=== PATIENT | female | born 1955 | race Caucasian/White ===

== ENCOUNTER 2019-11-24 20:00 | Outpatient (CLI) | payer MEDICARE, SELFPAY | END 2019-11-24 20:01 | disposition home or self-care (01) | LOC: SLEEP 11-25 10:19 | PROVIDERS: Family Provider Family Medicine; PCP Family Medicine; Visit Provider Family Medicine | DX: G47.10 Hypersomnia, unspecified (principal) | CPT/HCPCS: 95810 ==

== ENCOUNTER 2020-07-12 10:15 | Outpatient (CLI) | payer MEDICARE, SELFPAY ==
--- NOTE | 2020-07-12 10:20 | CT_ITS ---
WS: [id number] CT CHEST WITHOUT INTRAVENOUS CONTRAST HISTORY: SHORTNESS OF BREATH/TACHYCARDIA/COUGH/COVID 19 TECHNIQUE: Contiguous 5 mm axial imaging performed on the thorax. Coronal and sagittal reformats are submitted. All CT scans at [facility] use at least one of these dose optimization techniq ues: automated exposure control; mA and/or kV adjustment per patient size (includes targeted exams wh ere dose is matched to clinical indication); or iterative reconstruction. CONTRAST: None DLP: 461.78 mGy.cm COMPARISON: Chest radiograph 06/17/2019 Lungs and central airway: Marked hyperinflation of the lungs. There is continued groundglass and mild heterogeneity in a mosaic distribution predominantly in the lower lung moeller and the periphery. Les ign granuloma RIGHT upper lobe. Scarring at the RIGHT apex with calcification. Soft tissue nodule wit h calcification along the superior RIGHT major fissure. The soft tissue component extends over a zeb gth of 1.5 cm. Pleura: Mild pleural thickening bilaterally. Heart and pericardium: Mild pericardial enlargement. No effusion. Mediastinum and uzma: Calcified RIGHT paratracheal, subcarinal and hilar lymph nodes. Vessels: Normal size aortic and pulmonary artery. No coronary artery calcifications. Chest wall and lower neck: No soft tissue masses. Upper abdomen: Prior cholecystectomy. Mild hepatic steatosis. Splenic granulomata. Osseous structures: No destructive process. CT/CT chest wo con [id number] IMPRESSION: 1. Groundglass attenuation in the lower lung moeller which can be seen with vir al pneumonitis or air trapping from emphysema and chronic lung disease. 2. Lobulated soft tissue nodule with calcification along the superior RIGHT ma jennifer fissure. Soft tissue component measures 1.5 cm in length. Recommend continu ed close follow-up for stability. Recommend follow-up chest CT in 3-6 months. 3. Prior granulomatous disease. 4. Chronic emphysema. 5. Prior cholecystectomy.
== END 2020-07-12 10:16 | disposition home or self-care (01) ==
LOC: CT 10:18
PROVIDERS: PCP Family Medicine; Visit Provider Family Medicine
DX: U07.1 COVID-19 (principal); R06.02 Shortness of breath; R00.0 Tachycardia, unspecified; R05 Cough; J43.9 Emphysema, unspecified; D71 Functional disorders of polymorphonuclear neutrophils; R91.1 Solitary pulmonary nodule
CPT/HCPCS: 71250

== ENCOUNTER 2020-07-26 10:38 | Outpatient (CLI) | payer MEDICARE, SELFPAY ==
--- NOTE | 2020-07-26 10:42 | USCV_ITS ---
Princess Saunders Age: 65 Gender: F : 1955 Exam Date: 07/26/2020 11:04 Ordering Phys: Muna Lawrence MD Technologist: Jared Watkins Exam Location: [facility] [place] Indication: CHEST PAIN BP: 120 / 70 HR: 101 Rhythm: Sinus Technical Quality: Fair MEASUREMENTS (Male / Female) Normal Values 2D ECHO LV Diastolic Diameter PLAX 4.0 cm 4.2 - 5.9 / 3.9 - 5.3 cm LV Systolic Diameter PLAX 2.4 cm IVS Diastolic Thickness 1.1 cm 0.6 - 1.0 / 0.6 - 0.9 cm IVS Systolic Thickness 1.7 cm LVPW Diastolic Thickness 1.0 cm 0.6 - 1.0 / 0.6 - 0.9 cm LVPW Systolic Thickness 1.3 cm LVOT Diameter 2.0 cm LV Ejection Fraction 2D Teich 72.1 % LV Ejection Fraction MOD 2C 58.4 % LV Ejection Fraction 2C AL 58.8 % LA Diameter 3.4 cm LA Width 2.9 cm LA Height 4.0 cm RA Width 3.1 cm RA Height 3.7 cm Aorta at Sinotubular Diameter 1.0 cm M-MODE LV Diastolic Diameter MM 4.4 cm 4.2 - 5.9 / 3.9 - 5.3 cm LV Systolic Diameter MM 2.6 cm LV Ejection Fraction MM Teich 71.4 % IVS Diastolic Thickness MM 1.0 cm 0.6 - 1.0 / 0.6 - 0.9 cm IVS Systolic Thickness MM 1.4 cm LVPW Diastolic Thickness MM 0.9 cm 0.6 - 1.0 / 0.6 - 0.9 cm LVPW Systolic Thickness MM 1.2 cm RV Diastolic Diameter MM 1.2 cm Aortic Annulus Diameter 3.6 cm LA Ao Ratio MM 1.0 MV E Point Septal Separation 0.9 cm DOPPLER AV Peak Velocity 102.0 cm/s LVOT Peak Velocity 78.0 cm/s AV Area Cont Eq vti 2.1 cm squared AV Area Cont Eq pk 2.4 cm squared MV Area PHT 5.0 cm squared Mitral E to A Ratio 0.7 MV E' Velocity 6.0 cm/s Mitral E to MV E' Ratio 7.8 Mitral E to LV E' Lateral Ratio 10.2 Mitral E to LV E' Septal Ratio 6.4 TR Peak Velocity 114.0 cm/s TR Peak Gradient 5.2 mmHg Right Atrial Pressure 3.0 mmHg Pulmonary Artery Systolic Pressu 8.2 mmHg PV Peak Velocity 131.0 cm/s FINDINGS Left Ventricle Normal left ventricular size and wall thickness. Mildly decreased left ventricular systolic function. Left ventricular ejection fraction is estimated at 45 %. Mild global hypokinesis. Normal diastolic function. Right Ventricle Normal right ventricular size and systolic function. Right ventricular systolic pressure 8.2 mmHg. Right Atrium Normal right atrial size. Left Atrium Normal left atrial size. Mitral Valve Structurally normal mitral valve. Aortic Valve Probably trileaflet aortic valve. No aortic valve stenosis. No aortic valve regurgitation. Tricuspid Valve Tricuspid valve not well visualized. Pulmonic Valve Pulmonic valve not well visualized. No pulmonary valve regurgitation. Pericardium No pericardial effusion. Aorta Normal size aortic root and proximal ascending aorta. CONCLUSIONS 1. Normal left ventricular size and wall thickness. Mildly decreased left ventricular systolic function. Left ventricular ejection fraction is estimated at 45 %. Mild global hypokinesis. Normal diastolic function. 2. Normal right ventricular size and systolic function. 3. Normal pulmonary artery pressure. 4. No significant valvular abnormality. 5. No prior similar studies to compare. Mirella Stewart MD (Electronically Signed) Final Date: 26 July 2020 16:32 S
== END 2020-07-26 10:39 | disposition home or self-care (01) ==
LOC: US 10:39
PROVIDERS: PCP Family Medicine; Visit Provider Family Medicine
DX: R05 Cough (principal); U07.1 COVID-19; R00.0 Tachycardia, unspecified; R07.9 Chest pain, unspecified
CPT/HCPCS: 93306

== ENCOUNTER 2020-08-11 21:22 | Emergency (ER) | payer MEDICARE, SELFPAY ==
[2020-08-11 21:34] VITALS: BP 154/96; PULSE 112; RESP 18; TEMP 36.9; O2SAT 97; BMI 29.0
--- NOTE | 2020-08-11 21:43 | XR_ITS ---
WS: [id number] Portable AP upright chest, 08/11/2020 Clinical Data: Cough Comparison: PA and lateral chest, 06/17/2019. Findings: No nodules, masses or effusions are seen. The heart is normal. The pulmonary vascularity is not increased. No pneumonia or pneumothorax is seen. There is a calcification overlying the midporti on of the right upper lobe unchanged. The patient's clothing obscures only minimal detail over the lo wer chest and upper abdomen. XR/XR chest 1V portable [id number] Impression: Negative chest.
--- NOTE | 2020-08-11 21:56 | ECG_ITS ---
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 Measurements Intervals [place] Rate: 112 P: 20 MS: 120 QRS: 20 QRSD: 77 T: 28 QT: 316 QTc: 432 Interpretive Statements SINUS TACHYCARDIA POSSIBLE LEFT ATRIAL ENLARGEMENT [-0.1mV P WAVE IN V1/V2] ABNORMAL RHYTHM ECG No previous ECG available for comparison Electronically Signed On 08-12-2020 19:21:12 CDT by Mariam Cobb M.D. [id number]
--- NOTE | 2020-08-11 22:03 | W.ED.CHESTPA ---
HPI - Chest Pain General: Chief Complaint: Chest Pain Stated Complaint: arm pain/ pain/sob/coughing Time Seen by Provider: 08/11/20 21:55 History of Present Illness: HPI narrative: 65-year-old female patient presents to the emergency department with 10-hour onset of pain in her left arm and right arm and heaviness in her chest. She denies chest pain. She reports discomfort as numbness and heaviness. She reports history of emphysema, history of COVID in May. She reports since infection of COVID, she has developed shortness of breath and dyspnea with exertion. She reports shortness of breath and dyspnea has not changed. She was recently evaluated by her primary care provider who placed her on Xopenex and Epclusa, states Xopenex will improve symptoms but only for a few hours. States new onset of heaviness in her chest and pain in her arms are concerning. She has follow-up with pulmonology on Sunday of next week and cardiology appointment with Dr. Cobb on Sunday. She denies vomiting, she reports some nausea. MD complaint: chest heaviness and chest discomfort Pertinent past history: other (Emphysema, COVID-19 in May) Onset (ago): hour(s) (10) Timing of current episode: increasing Onset: during rest and during exertion Pain location: left chest and right chest Pain radiation: right arm and left arm Severity: moderate Quality: tightness and heaviness Relieving factors: remaining still and sitting upright Exacerbating factors: exertion Context: recent illness Associated symptoms: Reports dyspnea and nausea; Deny diaphoresis, fever(s) or palpitations Treatment prior to arrival: other (Xopenex inhaler) Review of Systems General: Reports: 10 or more systems reviewed and unremarkable except in HPI and below Const: Denies: fever(s), chills or diaphoresis Eyes: Denies: blurry vision or eye redness ENMT: Denies: throat pain, dental pain or disequilibrium Card: Reports: dyspnea on exertion; Denies: chest pain, palpitations, irregular heart rhythm, edema, swelling of feet/ankles or orthopnea Resp: Reports: dyspnea and non-productive cough (In the morning) GI: Reports: nausea : Denies: difficulty voiding or dysuria Musc: Denies: back pain Skin/Breast: Denies: rash or pruritus Neuro: Denies: headache(s), weakness in extremities or behavioral changes Clarke/Lymph: Denies: easy bruising Physical Exam Const: COMMON NORMALS: no acute distress, patient oriented x3, healthy appearing and alert GENERAL APPEARANCE: cooperative, comfortable and well hydrated HENMT: COMMON NORMALS: normocephalic, Normal external nose present and moist oral mucous membranes HEAD & SCALP: normocephalic NOSE: Normal external nose present Eye: COMMON NORMALS: Equal, round and reactive pupils present and EOMs intact bilaterally GENERAL EYE: appearance normal, both eyes and all related structures PUPIL: Yes Equal, round and reactive pupils present Neck/C-Spine: COMMON NORMALS: full ROM and no lymphadenopathy GENERAL: Yes normal visual inspection and Yes trachea midline CERVICAL SPINE: Yes cervical ROM normal Lymph: LYMPHATIC: no lymphadenopathy noted Chest: COMMONS NORMALS: normal inspection of the chest and normal palpation of entire chest wall CHEST: No abnormal inspection of the chest Resp: COMMON NORMALS: normal respiratory effort, No retractions and clear to auscultation bilaterally EFFORT & INSPECTION: Yes able to speak in complete sentences, Yes symmetric chest movement, No respiratory distress, No decreased respiratory effort and No uses accessory muscles AUSCULTATION: clear to auscultation bilaterally and lung sounds not diminished Cardio: COMMON NORMALS: regular rhythm, S1 normal heart sound present, S2 normal heart sound present and Peripheral pulses 2+ throughout PALPATION: normal PMI RHYTHM: regular rhythm HEART SOUNDS: S1 normal heart sound present and S2 normal heart sound present PERIPHERAL PULSES: Peripheral pulses 2+ throughout GI: COMMON NORMALS: Normal to inspection, nondistended, normoactive bowel sounds present, Soft to palpation and non-tender INSPECTION: Yes normal to inspection PALPATION: Yes Soft to palpation : COMMON NORMALS: Yes no CVA tenderness BLADDER/KIDNEY EXAM: Yes no CVA tenderness Back/Pelvis: COMMON NORMALS: no CVA tenderness and thoracic and lumbar spine normal to inspection Extremity: COMMON NORMALS: normal to inspection and capillary refill normal Neuro: COMMON NORMALS: patient oriented x3 and no focal motor deficits SENSORIUM/ORIENTATION: Yes alert Psych: COMMON NORMALS: mental status grossly normal, Normal thought process present and cooperative ACTIVITY/MOTOR BEHAVIOR: Yes appropriate eye contact THOUGHT PROCESS: Normal thought process present Skin: COMMON NORMALS: no rashes or lesions noted and turgor normal GENERAL SKIN EXAM: no rashes or lesions noted and turgor normal Course ED course: 65-year-old female patient presents to the emergency department with her spouse with complaints of bilateral arm pain and heaviness in the chest. Previous infection of COVID-19 in May 2020, reports continued shortness of breath with tightness since infection. She has appointment with pulmonology and cardiology next week. Cardiac enzymes were negative, delta was negative, EKG unchanged (serial), Solu-Medrol was administered due to history of emphysema, she reported improvement with resolution of heaviness in the chest after administration. O2 saturation has remained 100% on room air during her stay, she remains normal sinus rhythm with rate in the 80s. She is wanting to go home, CT chest not repeated due to recent CT June 2020. Cardiac risk score 3 points, low score. No history of hypertension, dyslipidemia. Vital Signs: Vital signs: Vital Signs Temperature 98.4 F 08/11/20 21:34 Pulse Rate 87 08/12/20 02:17 Respiratory Rate 16 08/12/20 02:17 Blood Pressure 129/87 08/12/20 02:17 Pulse Oximetry 99 08/12/20 02:17 MDM - Chest Pain Lab Data: Labs: Lab Results 08/11/20 08/11/20 08/11/20 Range/Units 22:25 22:25 22:25 WBC Cancelled Corrected WBC Cancelled RBC Cancelled Hgb Cancelled Hct Cancelled MCV Cancelled MCH Cancelled MCHC Cancelled RDW Cancelled Plt Count Cancelled MPV Cancelled Gran % Cancelled Neut % (Auto) Cancelled Lymph % (Auto) Cancelled [place] % (Auto) Cancelled Eos % (Auto) Cancelled Baso % (Auto) Cancelled Neut # (Auto) Cancelled Lymph # (Auto) Cancelled [place] # (Auto) Cancelled Eos # (Auto) Cancelled Baso # (Auto) Cancelled Absolute Gran (aut o) Cancelled Nucleated RBC % (a uto) Cancelled Nucleated RBCs # Cancelled PT (12.1-14.9) SECO NDS INR (0.8-1.2) Sodium Cancelled Potassium Cancelled Chloride Cancelled Carbon Dioxide Cancelled Anion Gap Cancelled BUN Cancelled Creatinine Cancelled GFR Calculation Cancelled Glucose Cancelled Calculated Osmolal ity Cancelled Calcium Cancelled Total Bilirubin Cancelled AST Cancelled ALT Cancelled Alkaline Phosphata se Cancelled Troponin T Baselin e Cancelled Troponin T 120 Min [place] (0-10) ng/L Delta Troponin T (0-10) ABS# NT-Pro-B Natriuret Pep Cancelled Total Protein Cancelled Albumin Cancelled Globulin Cancelled 08/11/20 08/11/20 08/11/20 Range/Units 23:00 23:00 23:00 WBC 5.0 Corrected WBC RBC 4.63 Hgb 13.5 Hct 41.9 MCV 90.5 MCH 29.2 MCHC 32.2 RDW 14.2 Plt Count 266 MPV 10.0 Gran % Neut % (Auto) 53.7 Lymph % (Auto) 31.0 [place] % (Auto) 8.7 Eos % (Auto) 4.8 Baso % (Auto) 1.6 Neut # (Auto) 2.71 Lymph # (Auto) 1.6 [place] # (Auto) 0.4 Eos # (Auto) 0.2 Baso # (Auto) 0.1 Absolute Gran (aut o) Nucleated RBC % (a uto) 0 Nucleated RBCs # 0.0 PT 12.00 L (12.1-14.9) SECO NDS INR 0.86 (0.8-1.2) Sodium 134 L Potassium 4.0 Chloride 103 Carbon Dioxide 22 Anion Gap 13.0 BUN 6 L Creatinine 0.8 GFR Calculation 72.0 L Glucose 112 Calculated Osmolal ity 276 L Calcium 9.2 Total Bilirubin 0.5 AST 22 ALT 20 Alkaline Phosphata se 111 H Troponin T Baselin e Troponin T 120 Min [place] (0-10) ng/L Delta Troponin T (0-10) ABS# NT-Pro-B Natriuret Pep 74 Total Protein 7.1 Albumin 4.1 Globulin 3.0 08/11/20 08/12/20 Range/Units 23:00 00:43 WBC Corrected WBC RBC Hgb Hct MCV MCH MCHC RDW Plt Count MPV Gran % Neut % (Auto) Lymph % (Auto) [place] % (Auto) Eos % (Auto) Baso % (Auto) Neut # (Auto) Lymph # (Auto) [place] # (Auto) Eos # (Auto) Baso # (Auto) Absolute Gran (aut o) Nucleated RBC % (a uto) Nucleated RBCs # PT (12.1-14.9) SECO NDS INR (0.8-1.2) Sodium Potassium Chloride Carbon Dioxide Anion Gap BUN Creatinine GFR Calculation Glucose Calculated Osmolal ity Calcium Total Bilirubin AST ALT Alkaline Phosphata se Troponin T Baselin e 4 Troponin T 120 Min [place] 7.86 (0-10) ng/L Delta Troponin T 3.86 (0-10) ABS# NT-Pro-B Natriuret Pep Total Protein Albumin Globulin Imaging Data^: CXR: My impression: No acute process, no change from previous chest x-ray completed 06/17/2019, radiology interpretation pending EKG Data^: EKG 1: EKG interpretation date: 08/11/20 EKG interpretation time: 21:40 Prior EKG tracings: not available for review Computer generated interpretation: Sinus tachycardia, possible left atrial enlargement, abnormal ECG EKG 2: EKG interpretation date: 08/12/20 EKG interpretation time: 00:10 Prior EKG tracings: available for review Computer generated interpretation: Sinus rhythm, normal EKG, ventricular rate 80 Discharge Plan Discharge Patient Disposition: Home Clinical Impression: Chest pain Qualifiers: Chest pain type: unspecified Qualified Code(s): R07.9 - Chest pain, unspecified Emphysema/COPD Qualifiers: Emphysema type: unspecified Qualified Code(s): J43.9 - Emphysema, unspecified Condition: Stable Prescriptions: New methylprednisolone 4 mg tablets,dose pack See Rx Instructions .ROUTE .COMPLEX Qty: 21 RF: 0 Discharge Orders: Discharge Order (Routine); Ordered 08/12/20 Ordered By: Melly Goel Referrals: Muna Lawrence MD [Primary Care Provider] - Discharge Diet: Usual diet Discharge Activity: Resume usual activity Patient Instructions: Chest Pain (ED), Emphysema (ED) Activity Restrictions/Additional Instructions: Continue follow-up with pulmonology on Sunday as scheduled, do not miss this appointment Follow-up with cardiology appointment as scheduled Return to the emergency department if you develop worsening chest pain, increased shortness of breath, or other concerning symptoms Continue follow-up with your primary care physician Push fluids Rest at home Continue Xopenex every 4 hours as needed for shortness of breath Continue Epclusa Take steroids with food to avoid upset stomach Discharge Date/Time: 08/12/20 02:18 Coding Level of Care Code ED State Pilot for Chg Fwd Exam Comprehensive
[2020-08-11 23:19] LABS: Basophils # 0.1 10^3/uL (0.0-0.1); Basophils % 1.6 %; Eosinophils # 0.2 10^3/uL (0.0-0.8); Eosinophils % 4.8 %; Hematocrit 41.9 % (37.0-47.0); Hemoglobin 13.5 g/dL (11.5-15.3); Lymphocytes # 1.6 10^3/uL (0.8-4.8); Mean Corpuscular HGB Conc 32.2 g/dL (30.0-36.0); Mean Corpuscular Hemoglobin 29.2 pg (28.0-34.0); Mean Corpuscular Volume 90.5 fL (81-99); Monocytes # 0.4 10^3/uL (0.2-0.9); Monocytes % 8.7 %; Neutrophils # 2.71 10^3/uL (1.8-7.7); Neutrophils % 53.7 %; Nucleated Red Blood Cells % 0 %; Platelet Count 266 10^3/cmm (130-400); Red Blood Count 4.63 10^6/uL (4.1-5.3); Red Cell Distribution Width 14.2 % (12.1-15.1)
[2020-08-11 23:24] LABS: INR 0.86 (0.8-1.2)
[2020-08-11 23:40] LABS: Alanine Aminotransferase 20 U/L (0-33); Albumin Level 4.1 g/dL (3.5-5.2); Alkaline Phosphatase 111 IU/L (35-105); Aspartate Amino Transferase 22 U/L (0-32); Blood Urea Nitrogen 6 mg/dL (8-23); Calcium 9.2 mg/dL (8.5-10.5); Carbon Dioxide 22 mmol/L (22-29); Chloride 103 mmol/L (98-107); Creatinine Clr Calc Pharmacy 75.5247; Glucose 112 mg/dL (65-115); NT Pro B Type Natriuretic Pept 74 pg/mL (0-125); Osmolality Calculated 276 mOsm/kg (285-295); Sodium 134 mmol/L (136-145); Total Bilirubin 0.5 mg/dL (0.15-1.2); Total Protein 7.1 g/dL (6.6-8.7)
[2020-08-11 23:42] LABS: Troponin(5th) Baseline 4 ng/L (0-10)
--- NOTE | 2020-08-11 23:56 | ECG_ITS ---
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 Measurements Intervals [place] Rate: 80 P: 39 SD: 146 QRS: 11 QRSD: 83 T: 24 QT: 384 QTc: 443 Interpretive Statements SINUS RHYTHM No previous ECG available for comparison Electronically Signed On 08-12-2020 19:26:44 CDT by Mariam Cobb M.D. [email or web address]
[2020-08-12 00:49] VITALS: BP 152/72; PULSE 70; RESP 18; O2SAT 98
[2020-08-12 01:06] LABS: Troponin 5 2HR 7.86 ng/L (0-10); Troponin 5 2HR Delta 3.86 ABS# (0-10)
[2020-08-12 02:10] VITALS: BP 146/67; PULSE 71; RESP 15; O2SAT 97
--- NOTE | 2020-08-12 02:12 | PC.NURSE ---
assessment reviewed and agreed with
[2020-08-12 02:17] VITALS: BP 129/87; PULSE 87; RESP 16; O2SAT 99
== END 2020-08-12 02:18 | disposition home or self-care (01) ==
PROVIDERS: Emergency Medicine; Emergency Provider Nurse Practitioner Family; PCP Family Medicine
DX: R07.9 Chest pain, unspecified (principal); J43.9 Emphysema, unspecified
CPT/HCPCS: 12345; 36415; 71045; 80053; 83880; 84484; 85025; 85610; 93005; 96374; 99283; 99284; J2930

== ENCOUNTER → 2020-08-17 16:22 | Outpatient (BNVA) | payer MEDICARE, SELFPAY | PROVIDERS: PCP Family Medicine; Visit Provider Internal Medicine Pulmonary Disease | DX: Z11.59 Encounter for screening for other viral diseases (principal) | CPT/HCPCS: 87635 ==

== ENCOUNTER 2020-08-19 10:49 | Outpatient (CLI) | payer MEDICARE, SELFPAY ==
--- NOTE | 2020-08-19 11:22 | PFTS_ITS ---
Date of Study:08/19/20 Date of Dictation: 08/19/2020 MECHANICS: Forced vital capacity (FVC) is normal Forced expiratory volume in one second (FEV1) is normal FEV1/FVC is normal No bronchodilators given to comment on response FLOW VOLUME LOOP: Mild scooping of expiratory limb suggestive of small airway disease . LUNG VOLUMES: Total lung capacity (TLC) is increased. Residual volume (RV) is severely increased suggestive of significant air trapping DIFFUSING CAPACITY FOR CARBON MONOXIDE: Mildly reduced . INTERPRETATION: The spirometry is normal but increased lung volumes indirectly suggest obstructive ventilatory defect. Mild gas transfer defect. Correlate clinically MTDD
== END 2020-08-19 10:50 | disposition home or self-care (01) ==
LOC: RT 10:49
PROVIDERS: PCP Family Medicine; Visit Provider Internal Medicine Pulmonary Disease
DX: J43.9 Emphysema, unspecified (principal)
CPT/HCPCS: 94010; 94726; 94729

== ENCOUNTER 2020-08-20 06:13 | Observation (INO) | payer MEDICARE, SELFPAY ==
[2020-08-17 15:43] LABS: Basophils # 0.1 10^3/uL (0.0-0.1); Basophils % 0.8 %; Eosinophils # 0.1 10^3/uL (0.0-0.8); Eosinophils % 1.4 %; Hematocrit 45.4 % (37.0-47.0); Hemoglobin 14.5 g/dL (11.5-15.3); Lymphocytes # 1.8 10^3/uL (0.8-4.8); Lymphocytes % 23.3 %; Mean Corpuscular HGB Conc 31.9 g/dL (30.0-36.0); Mean Corpuscular Hemoglobin 29.1 pg (28.0-34.0); Mean Corpuscular Volume 91.2 fL (81-99); Monocytes # 0.5 10^3/uL (0.2-0.9); Monocytes % 6.2 %; Neutrophils # 5.21 10^3/uL (1.8-7.7); Neutrophils % 67.5 %; Nucleated Red Blood Cells % 0 %; Platelet Count 327 10^3/cmm (130-400); Red Blood Count 4.98 10^6/uL (4.1-5.3); Red Cell Distribution Width 14.3 % (12.1-15.1); White Blood Count 7.7 10^3/uL (4.0-10.0)
[2020-08-17 16:07] LABS: INR 0.83 (0.8-1.2)
[2020-08-17 16:11] LABS: Anion Gap 17.5 (5-19); Blood Urea Nitrogen 14 mg/dL (8-23); Calcium 9.6 mg/dL (8.5-10.5); Carbon Dioxide 26 mmol/L (22-29); Chloride 102 mmol/L (98-107); Glucose 109 mg/dL (65-115); Osmolality Calculated 293 mOsm/kg (285-295); Potassium 4.5 mmol/L (3.5-5.1); Sodium 141 mmol/L (136-145)
[2020-08-19 07:58] VITALS: BMI 30.3
[2020-08-20] VITALS (29 sets, daily range): BP systolic 106–173; BP diastolic 49–81; PULSE 71–87; RESP 13–24; TEMP 36.6–37; O2SAT 94–100; BMI 30.3
--- NOTE | 2020-08-20 06:00 | XACV_ITS ---
Exam Room: [facility] Ht: 168 cm Wt: 85 kg BSA: 2.02 m2 Gender: Female : 1955 Any Known Allergies: Sulfa Exam Priority: Routine Procedure(s): Procedure Description: Diagnostic procedure Procedure Description: Left Heart Catheterization Procedure Description: Left ventriculography Procedure Description: Coronary Angiography Diagnostic Cath Status: Elective Diagnostic Findings * The left main is a medium caliber vessel with no significant stenotic lesions. * The left anterior descending artery is a medium caliber vessel which appears to wrap around the LV apex. The mid and distal segment of the artery was found to have mild diffuse intimal irregularities with no significant stenotic lesions. * The left circumflex artery is a medium caliber nondominant vessel with no significant stenotic lesions. * The right coronary artery is a medium caliber dominant vessel * with minimal regularities in the proximal to mid segment. No significant stenotic lesions. Conclusions 1. This is a 65-year-old white female with a history of hypertension and a strong family history for premature atherosclerotic heart disease, presented with complaints of exertional chest tightness and shortness of breath. She had echocardiogram done which revealed LV ejection fraction around 45%. She was having significant limitation of her activities because of the symptoms. For further evaluation of her coronary status, a cardiac catheterization was recommended. She underwent left heart catheterization with a left and right coronary angiogram and LV angiogram today. The findings are as follows. 2. Mild disease in the left and descending artery and right coronary artery. No significant obstructive coronary artery disease. Diminished ejection fraction of 45 to 50%. Markedly elevated left ventricular end-diastolic pressure of 31 mmHg. 3. The above features past history of possible hypertensive heart disease. Based on the findings, it was decided to treat her medically. Diagnostic RX Recommendation: medical therapy and/or counseling LV EDP: 31 mmHg Ventriculography Ejection Fraction: 45.0 % Left Ventriculography Findings: * The LV gram was performed in the GALLAGHER view by placing the pigtail catheter in the left ventricle. The LV cavity appears to be upper limit of normal size. The LVEDP was 31 mmHg. There is no filling defect. No significant mitral valve prolapse or mitral regurgitation. Mild diffuse hypokinesia of the left ventricle was noted. LV ejection fraction was 45 to 50%. Pressures Phase:Rest AO : 162 / 80 ( 112 ) @ 2:20:00 AM 209 / 95 ( 145 ) @ 2:28:00 AM 206 / 96 ( 145 ) @ 2:28:00 AM LV : 195 / -3 / @ 2:27:00 AM 189 / 0 / @ 2:27:00 AM 192 / 0 / @ 2:28:00 AM Valves Phase:DefaultPhase AV : 0.0 @ 7:44:44 AM AV Mean Gradient: 0.0 @ 7:44:44 AM Clinical Evaluation EBL: 5mL-10mL Procedural Details Procedure Consent Obtained. Pre-Procedure Time Out. Identified patient by full name and date of as verbalized by the patient/guarantor. Does the consent match the physician's order: Yes. Accurate & Complete Informed Consent: Yes. Inpatient/Outpatient History & Physical on Chart: Yes. If H&P is completed, is and addenduem needed: No; If yes, is the addendum complete: N/A. Visualize and Verify Site with Patient/Guarantor: N/A. Relevant Radiology Images available: N/A. Pre-op teaching completed and patient verbalized understanding. The risks, benefits, and alternatives of sedation and/or procedure were discussed by physician. The patient agrees to continue. Procedure started. [facility] Clinical Fraility Score: 4: Vulnerable. Loom Checker Indications: Cardiomyopathy. Chest Pain Symptom Assessment: Typical Angina Symptoms. Cardiovascular Instability: No. Correct patient, site and procedure confirmed by cath team. PERRLA. Strong, equal hand exec. creative director bilaterally. Lungs clear x 5 lobes. IV Site on Arrival: 20 gauge in the right anticubital. IV Fluids: 0.9% NaCl at KVO. 0 mL infused prior to labelling machine operator. Pre Procedural Pulses: bilateral dorsalis pedis was Doppled. Pre Procedural Pulses: bilateral posterior tibial was 2+. Pre Procedural Pulses: bilateral radial was 2+. Oxygen started at 2liters/min via nasal canula. bilateral groins was prepped with chloroprep then draped in the usual sterile fashion. right radial was prepped with chloroprep then draped in the usual sterile fashion. Baseline sample Acquired. HR: 91 BPM. Physician notified. Equipment: 6F - Radial. Cardiac Cath Pack. ACIST Manifold Kit Model BT 2000. Heparinized Saline (2 units/mL), 1000 mL bag. Physician arrived. Physician scrubbed in. Immediate Pre-Procedure Time Out. Correct Patient: Yes; Correct Procedure: Yes; Correct Site: Yes; Correct Patient Position: Yes; Correct Supplies: Yes; Dried Flammable Prep: Yes; Blood Products Available: N/A;. Lidocaine 1% infiltrated to the right radial. Arterial access obtained. A MCE-5 Development 5 Fr Kar Radial Catheter, 110cm was advanced over the wire and used for Left coronary angiography. Multiple views taken of left coronary artery. Catheter redirected to the RCA. Catheter out. A 5 italian Angled Pig catheter in over wire. Multiple views taken of right coronary artery. EDP Sample taken: LV 195/-4,31; HR: 89 BPM; SpO2: 100%. LV gram performed in GALLAGHER @ 10 mL/second for a total of 30 mL. EDP Sample taken: LV 189/0,36; HR: 89 BPM; SpO2: 100%. Pullback taken: LV 192/-1,35; AO 209/95(145); Mean: 0mmHg, Peak to Peak: 0mmHg, SEP: 7sec/min; HR: 88 BPM; SpO2: 99%. Catheter out. Physician scrubbed out. A TR Band was successful obtaining hemostatsis at the Right Radial artery insertion site. TR band placed. Hemostasis obtained. Post Procedure: Pulses reassessed and unchanged. PERRLA. Strong, equal hand exec. creative director bilaterally. No VTE prophylaxis required. Medication's Wasted: Lidocaine 1% = 18 mL. Medication's Wasted: Nitro = 49.8 mg. Medication's Wasted: Heparin = 1000 units. Total IV fluids: 50 mL. Contrast type used: Omnipaque 300 mgI/mL, 500 mL bottle. Post-op diagnosis: cardiomyopathy. Complications: none. Estimated blood loss: 5mL-10mL. Procedure completed. Patient transferred by wheelchair to 1st floor. Vital chart was stopped. Access Site Site: Right Radial artery Sheath Size: 6 Fr Hemostasis Method: TR Band Hemostasis Success: Successful Procedure Medications Start: 7:17 AM Stop: 7:17 AM Medication: Verapamil Amount: 5 mg Route: I.A. Start: 7:17 AM Stop: 7:17 AM Medication: Nitrogylcerin Amount: 200 mcg Route: I.A. Start: 7:19 AM Stop: 7:19 AM Medication: Heparin Amount: 5000 units Route: I.V. Start: 7:13 AM Stop: 7:13 AM Medication: Versed Amount: 1 mg Route: I.V. Start: 7:13 AM Stop: 7:13 AM Medication: Fentanyl Amount: 50 mcg Route: I.V. Start: 7:24 AM Stop: 7:24 AM Medication: Versed Amount: 1 mg Route: I.V. Start: 7:24 AM Stop: 7:24 AM Medication: Fentanyl Amount: 50 mcg Route: I.V. Start: 7:19 AM Stop: 7:19 AM Medication: Lopressor (metoprolol) Amount: 5 mg Route: I.V. Start: 7:26 AM Stop: 7:26 AM Medication: Lopressor (metoprolol) Amount: 5 mg Route: I.V. Start: 7:31 AM Stop: 7:31 AM Medication: Hydralazine Amount: 10 mg Route: I.V. Start: 7:33 AM Stop: 7:33 AM Medication: Nitrogylcerin Amount: 2 Route: Topical Start: 7:38 AM Stop: 7:38 AM Medication: Hydralazine Amount: 10 mg Route: I.V. I, the attending physician, have reviewed and verified all procedure medications. Yes, all medications given per verbal order History/Risk Factors Hypertension: No Dyslipidemia: No Peripheral Arterial Disease (PAD): No Myocardial Infarction ([place]): No Obesity: Yes Renal Disease: No Tobacco Use: Never Prior Interventions PCI: No CABG: No Valve Surgery: No Report Signatures Finalized by Dr Mariam Cobb MD [facility] on 08/20/2020 10:18 AM
[2020-08-20] MEDS: diphenhydrAMINE 50 mg Capsule PO (06:17)
--- NOTE | 2020-08-20 07:09 | W.PM.OPSUD ---
Surgery/Procedure H&P Update DATE OF PROCEDURE: August 20, 2020 DATE H&P PERFORMED: 08/17/20 H&P UPDATE INFORMATION: I have reviewed H&P completed within last 30 days, I have examined patient prior to procedure and No changes to prior documentation PREOP DIAGNOSIS: Unstable angina/cardiomyopathy PLANNED PROCEDURE: Operation Date: 08/20/20 07:00 Proposed Procedures p Cardiac Catheterization(Left) - Mariam Cobb MD PATIENT REASSESSED PRIOR TO SEDATION, WITH NO CHANGE NOTED: Yes PHYSICAL EXAM: alert, oriented x 3, clear to auscultation bilaterally and regular rate & rhythm AIRWAY EVAL/ANESTHESIA PLAN: normal airway, see other exam findings, ASA II, Monitored Anesthesia, Local Anesthesia, Risks, benefits & alternatives of sedation and/or procedure discussed and Patient agrees to continue as planned
--- NOTE | 2020-08-20 08:00 | PC.NURSE ---
Patient to CSU from laboratory tech at 0750. 2 nurse verification of insertion site, TR band intact asymptomatic. VSS. Nurse to continue to monitor.
[2020-08-20] MEDS: escitalopram 10 mg Tablet 5 MG PO (08:02)
[2020-08-20] MEDS: isosorbide mononitrate ER 30 mg Tablet PO (08:03)
[2020-08-20] MEDS: duloxetine 30 mg Capsule PO (08:03)
[2020-08-20] MEDS: aspirin 81 mg EC Tablet PO (08:03)
[2020-08-20] MEDS: pantoprazole DR 40 mg Tablet PO (08:03)
[2020-08-20] MEDS: levothyroxine 50 mcg Tablet PO (08:03)
[2020-08-20] MEDS: metoprolol tartrate 50 mg Tablet PO (08:04)
[2020-08-20] MEDS: sodium chloride 0.9% 1,000 ML 100 ML IV (08:36)
--- NOTE | 2020-08-20 09:40 | PC.NURSE ---
Patient reports that she is developing a migraine, 04/21. Dr. Cobb notified. BP now 107/49. Physician gave telephone order to remove nitro paste and administer prn tylenol order. Nitro paste removed at this time. Nurse to continue to monitor.
[2020-08-20] MEDS: acetaminophen 325 mg Tablet 650 MG PO (09:42)
[2020-08-20] MEDS: pneumococcal (23 valent) SDV 0.5 mL IM (11:34)
--- NOTE | 2020-08-20 11:40 | PC.NURSE ---
TR band off at this time. removed per protocol. Site asymptomatic, dressing applied CDI. Patient tolerated well. Nurse to continue to monitor.
--- NOTE | 2020-08-20 14:21 | PC.NURSE ---
Discharge instructions given per the physician's orders. Patient verbalized understanding and did not have any further questions. Site asymptomatic. IV has been removed. Patient is dressing self. will take patient home in a private vehicle. No further needs identified at this time.
--- NOTE | 2020-08-20 14:37 | PC.CHAP ---
Pastoral Care Encounter/Spiritual Assessment Type of Contact [] Declined pan dumper visit [] Patient/Family/Request visit [] Outpatient visit [] Follow-up visit [] Physician referral [] Code/Alert [] Routine visit [] Staff referral [] Actively dying [] Patient sleeping [] Family support [] [] Out of room [] Palliative care [] [] Receiving care in room [] Pre-surgical visit [] Trauma [] Long length of stay [] ICU visit [x] Other: Patient was talking on the phone. Relational/Emotional Strength [] Patient feels connected with others/family/visitors/staff [] Distress [] Loneliness/isolation [] Abandonment Spirituality of Patient [] Person of Denita [] Attends Hoahaoism of their Denita [] Believes in Prayer [] Reads Bible or Hoahaoism materials [] There are Spiritual issues to be addressed Entrance Guard Interventions [] Prayer [] Active listening [] Non-anxious presence [] Spiritual/emotional support [] Crisis/trauma care [] Spiritual counseling [] Bereavement support [] Provided bereavement packet [] Provided Bible/devotional materials [] Provided toy/stuffed animal, coloring book to patient or family member [] Provided Communion [] Anointing/[place] [] Salvation [] Completed spiritual assessment [] Other: Impact on Illness or Injury [] Angry [] Fearful [] Anxious [] Often cries [] Exhaustion [] Unable to work [] Unable to attend moravian [] Unable to walk/stand [] Unable to read [] Unable to drive [] Unable to eat/drink [] Unable to sleep [] Unable to be with family [] Patient intubated [] Other: Summary Patient was on the phone with family. Referred patient for a follow up visit with next pan dumper. Patient visit was attempted by Entrance Guard Alex Rowland. Time spent with patient 3 minutes
== END 2020-08-20 14:30 | disposition home or self-care (01) ==
LOC: CSU 06:13
PROVIDERS: Admitting Provider Internal Medicine Cardiovascular Disease; PCP Family Medicine; Visit Provider Internal Medicine Cardiovascular Disease
DX: I25.110 Atherosclerotic heart disease of native coronary artery with unstable angina pectoris (principal); I10 Essential (primary) hypertension; Z82.49 Family history of ischemic heart disease and other diseases of the circulatory system; K21.9 Gastro-esophageal reflux disease without esophagitis; E03.9 Hypothyroidism, unspecified; J43.9 Emphysema, unspecified; R06.02 Shortness of breath; I25.5 Ischemic cardiomyopathy; Z79.01 Long term (current) use of anticoagulants
CPT/HCPCS: 12345; 36415; 80048; 85025; 85610; 86850; 86900; 90471; 90732; 93452; 96360; 96361; C1769; C1887; C1894; G0378; J0360; J1644; J2250; J3010; J3490; J7030; Q0163; Q9967

== ENCOUNTER → 2020-08-27 11:12 | Outpatient (BNVA) | payer MEDICARE, SELFPAY | PROVIDERS: PCP Family Medicine; Visit Provider Nurse Practitioner Family | DX: I50.20 Unspecified systolic (congestive) heart failure (principal); I25.5 Ischemic cardiomyopathy | CPT/HCPCS: 80048 ==

== ENCOUNTER → 2020-09-02 09:01 | Outpatient (BNVA) | payer MEDICARE, SELFPAY | PROVIDERS: PCP Family Medicine; Visit Provider Internal Medicine Cardiovascular Disease | DX: I50.22 Chronic systolic (congestive) heart failure (principal) | CPT/HCPCS: 80048 ==

== ENCOUNTER 2021-01-04 11:29 | Outpatient (CLI) | payer MEDICARE, SELFPAY ==
[2021-01-04 12:42] LABS: Anion Gap 11.5 (5-19); Blood Urea Nitrogen 8 mg/dL (8-23); Calcium 9.4 mg/dL (8.5-10.5); Carbon Dioxide 28 mmol/L (22-29); Chloride 105 mmol/L (98-107); Glomerular Filtration Rate 62.8 mL/min (90-130); Glucose 109 mg/dL (65-115); Osmolality Calculated 289 mOsm/kg (285-295); Potassium 4.5 mmol/L (3.5-5.1); Sodium 140 mmol/L (136-145)
== END 2021-01-04 11:30 | disposition home or self-care (01) ==
PROVIDERS: PCP Family Medicine; Visit Provider Internal Medicine Pulmonary Disease
DX: R06.02 Shortness of breath (principal)
CPT/HCPCS: 36415; 80048

== ENCOUNTER → 2021-09-15 10:30 | Outpatient (BNVA) | payer MEDICARE, SELFPAY | PROVIDERS: PCP Family Medicine; Visit Provider Internal Medicine Cardiovascular Disease | DX: I11.0 Hypertensive heart disease with heart failure (principal); I50.33 Acute on chronic diastolic (congestive) heart failure; I50.30 Unspecified diastolic (congestive) heart failure; R06.02 Shortness of breath; I42.8 Other cardiomyopathies; E03.8 Other specified hypothyroidism; R07.89 Other chest pain | CPT/HCPCS: 80048; 83880 ==

== ENCOUNTER → 2022-01-13 08:12 | Outpatient (BNVA) | payer MEDICARE, SELFPAY | PROVIDERS: PCP Family Medicine; Visit Provider Internal Medicine Pulmonary Disease | DX: J44.9 Chronic obstructive pulmonary disease, unspecified (principal); I50.22 Chronic systolic (congestive) heart failure; I25.5 Ischemic cardiomyopathy; R91.8 Other nonspecific abnormal finding of lung field | CPT/HCPCS: 99214 ==

== ENCOUNTER → 2022-03-15 09:31 | Outpatient (BNVA) | payer MEDICARE, SELFPAY | PROVIDERS: PCP Family Medicine; Visit Provider Nurse Practitioner Family | DX: I11.0 Hypertensive heart disease with heart failure (principal); I50.22 Chronic systolic (congestive) heart failure | CPT/HCPCS: 99214 ==

== ENCOUNTER → 2022-08-08 15:04 | Outpatient (BNVA) | payer MEDICARE, SELFPAY | PROVIDERS: PCP Family Medicine; Visit Provider Internal Medicine Pulmonary Disease | DX: J44.9 Chronic obstructive pulmonary disease, unspecified (principal); R06.02 Shortness of breath; I50.22 Chronic systolic (congestive) heart failure; I25.5 Ischemic cardiomyopathy; R91.8 Other nonspecific abnormal finding of lung field; I25.118 Atherosclerotic heart disease of native coronary artery with other forms of angina pectoris; Z86.16 Personal history of COVID-19 | CPT/HCPCS: 99214 ==

== ENCOUNTER → 2022-08-10 12:16 | Outpatient (BNVA) | payer MEDICARE, SELFPAY | PROVIDERS: PCP Family Medicine; Referring Provider Family Medicine; Visit Provider Internal Medicine | DX: E04.2 Nontoxic multinodular goiter (principal); E03.9 Hypothyroidism, unspecified; E07.9 Disorder of thyroid, unspecified; E03.8 Other specified hypothyroidism | CPT/HCPCS: 99204 ==

== ENCOUNTER 2022-09-12 14:23 | Outpatient (CLI) | payer MEDICARE, SELFPAY ==
--- NOTE | 2022-09-12 14:32 | MM_ITS ---
WS: [id number] BILATERAL 3D TOMOSYNTHESIS DIGITAL SCREENING MAMMOGRAPHY WITH CAD CLINICAL INFORMATION: SCREENING HISTORY: Screening mammogram. No current complaints. COMPARISON: 2018 TECHNIQUE: Bilateral CC and MLO views. FINDINGS: Scattered fibroglandular densities bilaterally. No suspicious focal mass, asymmetry, calcifications, or architectural distortion. No evidence of malignancy. Punctate and lucent centered calcifications. Vascular calcifications. MM/[place] [id number] IMPRESSION: BI-RADS: 2-Benign FOLLOW UP: 1 Year Follow-up Recommend return to annual screening mammography..
== END 2022-09-12 14:24 | disposition home or self-care (01) ==
LOC: RAD 14:24
PROVIDERS: PCP Family Medicine; Visit Provider Family Medicine
DX: Z12.31 Encounter for screening mammogram for malignant neoplasm of breast (principal)
CPT/HCPCS: 77063; 77067

== ENCOUNTER 2022-10-09 09:24 | Outpatient (CLI) | payer MEDICARE, SELFPAY ==
[2022-10-09 10:40] LABS: Free T4 Free Thyroxine 1.14 ng/dL (0.82-1.77); Thyroid Stimulating Hormone 1.79 uIU/mL (0.27-4.20)
== END 2022-10-09 09:25 | disposition home or self-care (01) ==
PROVIDERS: PCP Family Medicine; Visit Provider Internal Medicine
DX: E03.9 Hypothyroidism, unspecified (principal)
CPT/HCPCS: 84439; 84443

== ENCOUNTER → 2022-10-18 13:04 | Outpatient (BNVA) | payer MEDICARE, SELFPAY | PROVIDERS: PCP Family Medicine; Visit Provider Internal Medicine | DX: E04.2 Nontoxic multinodular goiter (principal); E03.9 Hypothyroidism, unspecified; E03.8 Other specified hypothyroidism; E07.9 Disorder of thyroid, unspecified; I50.22 Chronic systolic (congestive) heart failure; Z79.890 Hormone replacement therapy | CPT/HCPCS: 99214 ==

== ENCOUNTER → 2022-10-25 10:38 | Outpatient (BNVA) | payer MEDICARE, SELFPAY | PROVIDERS: PCP Family Medicine; Visit Provider Internal Medicine Cardiovascular Disease | DX: R07.89 Other chest pain (principal); I10 Essential (primary) hypertension; I42.8 Other cardiomyopathies; E03.8 Other specified hypothyroidism | CPT/HCPCS: 99213 ==

== ENCOUNTER 2022-12-22 15:38 | Outpatient (CLI) | payer MEDICARE, SELFPAY ==
--- NOTE | 2022-12-22 16:00 | US_ITS ---
WS: [id number] THYROID ULTRASOUND HISTORY: nodule COMPARISON: 10/11/2009 Right lobe: 2.2 cm x 1.5 cm x 4.5 cm (w x ap x l). Volume: 7.6 cm3. Normal size thyroid gland. Cystic nodule mid RIGHT lobe measures 8 x 6 x 10 mm. Nodule has increased in size since 2008. No solid component. Calcified nodule in the RIGHT isthmus measures 4 x 4 x 4 mm. Dense calcification or shadowing. Left lobe: LEFT thyroid is not identified. Removed several years ago. No mass in the thyroid bed. Isthmus: 0.3 cm. US/US thyroid [id number] IMPRESSION: 1. Status post LEFT thyroidectomy. No recurrent mass in the thyroid bed. 2. Benign nodules RIGHT thyroid. TI-RADS 2
== END 2022-12-22 15:39 | disposition home or self-care (01) ==
PROVIDERS: PCP Family Medicine; Visit Provider Internal Medicine
DX: E04.2 Nontoxic multinodular goiter (principal); E89.0 Postprocedural hypothyroidism
CPT/HCPCS: 76536

== ENCOUNTER 2023-04-12 10:40 | Outpatient (CLI) | payer MEDICARE, SELFPAY ==
[2023-04-12 11:37] LABS: Free T4 Free Thyroxine 1.26 ng/dL (0.82-1.77); Thyroid Stimulating Hormone 1.77 uIU/mL (0.27-4.20)
== END 2023-04-12 10:41 | disposition home or self-care (01) ==
PROVIDERS: PCP Family Medicine; Visit Provider Internal Medicine
DX: E03.9 Hypothyroidism, unspecified (principal); I50.22 Chronic systolic (congestive) heart failure
CPT/HCPCS: 36415; 84439; 84443

== ENCOUNTER → 2023-04-18 13:14 | Outpatient (BNVA) | payer MEDICARE, SELFPAY | PROVIDERS: PCP Family Medicine; Visit Provider Internal Medicine | DX: E03.8 Other specified hypothyroidism; E04.2 Nontoxic multinodular goiter; E07.9 Disorder of thyroid, unspecified; Z79.890 Hormone replacement therapy | CPT/HCPCS: 99214 ==

== ENCOUNTER 2023-06-18 12:02 | Outpatient (CLI) | payer MEDICARE, SELFPAY ==
--- NOTE | 2023-06-18 12:15 | US_ITS ---
WS: [id number] THYROID ULTRASOUND HISTORY: Multiple thyroid nodules COMPARISON: None available. Right lobe: 2.0 cm x 2.0 cm x 5.0 cm (w x ap x l). Volume: 10.6 cm3. Mildly enlarged thyroid with mild heterogeneity. Benign cyst in the mid thyroid measures 7 x 7 x 10 m m. No increase in size. Partially calcified nodule in the RIGHT isthmus measures 5 x 5 x 6 mm. No inc rease in size. Left lobe: Status post LEFT thyroidectomy. US/US thyroid [id number] IMPRESSION: 1. Status post LEFT thyroidectomy. 2. BI-RADS 2. Stable RIGHT thyroid and RIGHT isthmus nodules.
[2023-06-18 14:16] LABS: Thyroid Stimulating Hormone 1.19 uIU/mL (0.27-4.20)
[2023-06-18 14:47] LABS: Free T4 Free Thyroxine 1.28 ng/dL (0.82-1.77)
== END 2023-06-18 12:03 | disposition home or self-care (01) ==
PROVIDERS: PCP Family Medicine; Visit Provider Internal Medicine
DX: E03.8 Other specified hypothyroidism (principal); E04.2 Nontoxic multinodular goiter; E07.9 Disorder of thyroid, unspecified
CPT/HCPCS: 76536; 84439; 84443

== ENCOUNTER → 2023-06-27 13:41 | Outpatient (BNVA) | payer MEDICARE, SELFPAY | PROVIDERS: PCP Family Medicine; Visit Provider Internal Medicine | DX: E03.8 Other specified hypothyroidism (principal); E04.2 Nontoxic multinodular goiter; E07.9 Disorder of thyroid, unspecified; Z79.890 Hormone replacement therapy | CPT/HCPCS: 99214 ==

== ENCOUNTER 2023-07-17 13:41 | Outpatient (CLI) | payer MEDICARE, SELFPAY ==
--- NOTE | 2023-07-17 13:46 | XR_ITS ---
WS: [id number] SCREENING DEXA SCAN [employer] CLINICAL INFORMATION: ASYMPTOMATIC MENOPAUSAL STATE COMPARISON: None. FINDINGS: The L1-L4 bone mineral density measures 1.141 g/cm2. This corresponds to a T score score of -0.3 and Z score of 0.7. Left femoral neck bone mineral density measures 0.924 g/cm2. This corresponds to a T score of -0.7 an d Z score of 0.3. Right femoral neck bone mineral density measures 0.996 g/cm2. This corresponds to a T score -0.1of an d Z score of 0.8. Mean femoral neck bone mineral density measures 0.960 g/cm2. This corresponds to a T score of -0.4 an d Z score of 0.5. IMPRESSION: Normal bone mineralization lumbar spine. Normal bone mineralization femoral necks. Patient's FRAX calculated 10 year probability for major osteoporotic fracture is 15.9% and osteoporot ic hip fracture is 2.2%.
== END 2023-07-17 13:42 | disposition home or self-care (01) ==
LOC: RAD 13:43
PROVIDERS: PCP Family Medicine; Visit Provider Family Medicine
DX: Z13.820 Encounter for screening for osteoporosis (principal); Z78.0 Asymptomatic menopausal state
CPT/HCPCS: 77080

== ENCOUNTER → 2023-07-18 09:32 | Outpatient (BNVA) | payer MEDICARE, SELFPAY | PROVIDERS: PCP Family Medicine; Visit Provider Otolaryngology | DX: Z71.1 Person with feared health complaint in whom no diagnosis is made (principal) | CPT/HCPCS: 99202; 99203 ==

== ENCOUNTER 2023-10-29 22:26 | Emergency (ER) | payer MEDICARE, SELFPAY ==
[2023-10-29 22:30] VITALS: BP 130/81; PULSE 89; RESP 17; TEMP 36.7; O2SAT 93; BMI 25.4
--- NOTE | 2023-10-29 22:44 | XRR_ITS ---
PROCEDURE INFORMATION: Exam: XR Chest Exam date and time: 10/29/2023 11:51 PM Age: 68 years old Clinical indication: Patient HX: Cough didnt see the metal tassles on her hoodie till after she was gone TECHNIQUE: Imaging protocol: Radiologic exam of the chest. Views: 1 view. COMPARISON: CR XR chest 1V portable [id number] 08/11/2020 10:00 PM FINDINGS: Lungs: Left basilar patchy airspace disease. Mild COPD. A few minute calcified lung nodules are seen incidentally. Pleural spaces: Unremarkable. No pleural effusion. No pneumothorax. Heart/Mediastinum: Unremarkable. No cardiomegaly. Advanced diffuse vascular calcification noted. Bones/joints: Lower cervical fusion. Other findings: A few external artifacts are present. Absent gallbladder. XR/XR chest 1V portable [id number] IMPRESSION: Left basilar patchy pneumonia.
--- NOTE | 2023-10-29 23:37 | ED_ITS ---
HPI - SOB/Dyspnea 2 General: Chief Complaint: Shortness of Breath/Dyspnea Stated Complaint: Coughing\Fever\O2 Low Time Seen by Provider: 10/29/23 22:51 History of Present Illness: HPI Narrative: 68-year-old female presents to the emerg ency department with complaints of intermittent fever for the previous 6 days. She states she has been seen by the urgent care and was told that she had a upper respiratory virus and it would be resolved in 7 days. She states that she is continued to have intermittent nonproductive cough and she states that she feels like her oxygen saturations have been low here in the emergency department on room air her oxygen saturation is 93%. She denies chest pain, dizziness or syncope. She does endorse feeling nauseated.. Associated symptoms: Reports fever(s) Review of Systems 2 General: Reports: 10 or more systems reviewed and unremarkable except in HPI and below Const: Reports: fever(s), body aches, fatigue and malaise Resp: Reports: non-productive cough GI: Reports: diarrhea PFSH ED 2 PFSH: Medical History Benign essential HTN Ischemic cardiomyopathy GERD (gastroesophageal reflux disease) Hypothyroidism Allergic rhinitis COVID-19 Surgical History History of partial thyroidectomy H/O esophagogastroduodenoscopy H/O spinal fusion H/O total thyroidectomy with left radical neck dissection Family History Father Cancer metastatic lung cancer Brother CAD (coronary artery disease), Onset Age: 37 had a massive heart attack Brother CAD (coronary artery disease) Had 5 vessel bypass surgery Mother Bleeding disorder Dementia Grandmother Diabetes Denies family history of Clotting disorder Chronic kidney disease (CKD) Suicide Anesthesia complication Lung disease Stroke Social History Smoking and tobacco/nicotine status: never used tobacco/nicotine Second hand smoke exposure: Yes Alcohol intake: never Substance/Drug Use: never Lives independently: Yes Household members: spouse Housing: House Marital status: service: No Current occupational status: retired Pets and animals: Yes Do you think of yourself as: Straight/Heterosexual Current gender identity: Female Physical Exam 2 Narrative: EXAM NARRATIVE: Constitutional: the patient appears well nourished and with normal development. Vital signs reviewed as documented. HENMT: Normocephalic, atraumatic. External ears with normal appearance without drainage. Nose without drainage, normal appearance. Mucus membranes moist. Neck is supple, No jugular venous distension, trachea is midline, no appreciable carotid bruits. No lymphadenopathy. No meningeal signs. Flexion, extension and lateral rotation is without pain. Eyes: Pupils are equal, round, reactive to light and accommodation. No scleral icterus. Extra-ocular movement are intact. Thorax is symmetrical and with equal rise and fall with respirations. Resp: Lungs are clear to auscultation. No wheezes, rales, crackles or ronchi at present. Cardio: Regular rate and rhythm. Positive S1, S2. No appreciable murmurs, rubs or gallops. GI: Abdominal exam reveals normal bowel sounds to all quadrants. No organomegaly. No obvious palpable masses noted. No hepatomegally appreciated. Soft, nontender to palpation. Extremity: Extremities are non-edematous and both femoral and pedal pulses are 2+ and equal bilaterally. Moves all extremities well, sensation in all extremities. Neuro: Alert and oriented x4, person, place, time and situation. Cranial nerves II through XII are grossly intact, there is no focal neurological deficits that I can appreciate at present. Motor strength in the upper and lower extremities are equal and bilateral 5/5. Psych: Cooperative, calm, normal thought process, appropriate judgment. Skin: No lesions, rashes. No gross abnormalities noted. Back: Symmetrical, no obvious deformity, No CVA tenderness Course 2 Vital Signs: Vital signs: Vital Signs Temperature 98.1 F 10/29/23 22:30 Pulse Rate 72 10/30/23 01:36 Respiratory Rate 17 10/29/23 22:30 Blood Pressure 142/89 10/30/23 00:36 Pulse Oximetry 91 10/30/23 01:36 Oxygen Delivery Me thod Room Air 10/30/23 00:36 MDM - SOB/Dyspnea Medical Decision Making Physical exam completed and documented, I will obtain a CBC, CMP, influenza a and B screen as well as COVID-19 screen. I will obtain a chest x-ray for evaluation. I suspect most likely this is continuation of her viral illness or possibly pneumonia. As she states she has had some diarrhea intermittently and feels intermittently nauseated. Medical Records I reviewed the patient's medical records. Lab Data I reviewed the patient's lab results. 10/30/23 00:00 10/30/23 00:00 Labs/Radiology: Radiology Impressions Chest X-Ray 10/29/23 22:44 IMPRESSION: Left basilar patchy pneumonia. Laboratory Results WBC 3.57 10^3/uL (3.29-11.43) 10/30/23 00:00 RBC 4.50 10^6/uL (3.85-5.65) 10/30/23 00:00 Hgb 13.60 g/dL (11.27-16.99) 10/30/23 00:00 Hct 41.7 % (36-47) 10/30/23 00:00 MCV 92.7 fl (85-98) 10/30/23 00:00 MCH 30.2 pg (27-33) 10/30/23 00:00 MCHC 32.6 g/dL (30-55) 10/30/23 00:00 RDW 14.1 % (12.1-15.1) 10/30/23 00:00 Plt Count 270 10^3/cmm (157-399) 10/30/23 00:00 MPV 9.8 fL (7.4-10.4) 10/30/23 00:00 Neut % (Auto) 42.6 % 10/30/23 00:00 Lymph % (Auto) 36.7 % 10/30/23 00:00 [place] % (Auto) 12.0 % 10/30/23 00:00 Eos % (Auto) 7.0 % 10/30/23 00:00 Baso % (Auto) 1.4 % 10/30/23 00:00 Neut # (Auto) 1.52 10^3/uL (1.8-7.7) L 10/30/23 00:00 Lymph # (Auto) 1.3 10^3/uL (0.8-4.8) 10/30/23 00:00 [place] # (Auto) 0.4 10^3/uL (0.2-0.9) 10/30/23 00:00 Eos # (Auto) 0.3 10^3/uL (0.0-0.8) 10/30/23 00:00 Baso # (Auto) 0.1 10^3/uL (0.0-0.1) 10/30/23 00:00 Nucleated RBC % (auto) 0 % 10/30/23 00:00 Nucleated RBCs # 0.0 /100WBC 10/30/23 00:00 Sodium 136 mmol/L (136-145) 10/30/23 00:00 Potassium 4.0 mmol/L (3.5-5.1) 10/30/23 00:00 Chloride 100 mmol/L (98-107) 10/30/23 00:00 Carbon Dioxide 27 mmol/L (22-29) 10/30/23 00:00 Anion Gap 13.0 (5-19) 10/30/23 00:00 BUN 13 mg/dL (8-23) 10/30/23 00:00 Creatinine 0.9 mg/dL (0.5-0.9) 10/30/23 00:00 GFR Calculation 62.3 mL/min (90-130) L 10/30/23 00:00 Glucose 112 mg/dL (65-115) 10/30/23 00:00 Calculated Osmolality 283 mOsm/kg (285-295) L 10/30/23 00:00 Calcium 9.1 mg/dL (8.5-10.5) 10/30/23 00:00 Total Bilirubin 0.5 mg/dL (0.15-1.2) 10/30/23 00:00 AST 40 U/L (0-32) H 10/30/23 00:00 ALT 36 U/L (0-33) H 10/30/23 00:00 Alkaline Phosphatase 98 U/L (35-105) 10/30/23 00:00 Total Protein 6.5 g/dL (6.6-8.7) L 10/30/23 00:00 Albumin 3.6 g/dL (3.5-5.2) 10/30/23 00:00 Globulin 2.9 g/dL (1.3-4.6) 10/30/23 00:00 Urine Color Yellow (Yellow) 10/29/23 23:55 Urine Appearance Cloudy (CLEAR) A 10/29/23 23:55 Urine pH 5 (5-7) 10/29/23 23:55 Ur Specific [place] 1.020 (1.005-1.030) 10/29/23 23:55 Urine Protein 1+ (Negative) H 10/29/23 23:55 Urine Glucose (UA) Norm (Normal) 10/29/23 23:55 Urine Ketones 1+ (Negative) H 10/29/23 23:55 Urine Blood 2+ (Negative) H 10/29/23 23:55 Urine Nitrate Negative (Negative) 10/29/23 23:55 Urine Bilirubin 1+ (Negative) H 10/29/23 23:55 Urine Urobilinogen 4 mg/dL (Negative) H 10/29/23 23:55 Ur Leukocyte Esterase 2+ (Negative) H 10/29/23 23:55 Urine RBC 5-10 /hpf (0-2) H 10/29/23 23:55 Urine WBC 25-40 /hpf (0-5) H 10/29/23 23:55 Ur Squamous Epith Cells 10-15 /hpf (0-5) H 10/29/23 23:55 Calcium Oxalate Crystal 0-4 /hpf H 10/29/23 23:55 Amorphous Sediment Not Reportable 10/29/23 23:55 Urine Bacteria 2+ /hpf (NONE) H 10/29/23 23:55 Urine Mucus 2+ /hpf 10/29/23 23:55 Influenza Type A Ag negative (Negative) 10/29/23 23:44 Influenza Type B Ag negative (Negative) 10/29/23 23:44 SARS-CoV-2 Ag (Rapid) negative (Negative) 10/29/23 23:44 All radiology interpretation(s) finalized by discharge Discharge Plan Discharge Patient Disposition: Home Clinical Impression: Community acquired pneumonia, Acute UTI Condition: Stable Prescriptions: New benzonatate 200 mg capsule 200 mg PO TID Qty: 30 0RF No Action duloxetine 30 mg capsule,delayed release(DR/EC) 30 mg PO DAILY duloxetine 60 mg capsule,delayed release(DR/EC) 60 mg PO DAILY escitalopram oxalate [Lexapro] 5 mg tablet 5 mg PO DAILY levothyroxine 50 mcg capsule 50 mcg PO DAILY levalbuterol tartrate [Xopenex HFA] 45 mcg/actuation HFA aerosol inhaler 2 inh INHALATION Q4H PRN (Reason: Shortness Of Breath) pantoprazole [Protonix] 40 mg tablet,delayed release (DR/EC) 40 mg PO DAILY Qty: 90 4RF spironolactone 25 mg tablet See Rx Instructions .ROUTE .COMPLEX Qty: 45 3RF Dose Instruction: TAKE 1/2 TABLET EVERY DAY Rx Instructions: TAKE 1/2 TABLET EVERY DAY isosorbide mononitrate 60 mg tablet extended release 24 hr See Rx Instructions .ROUTE .COMPLEX Qty: 90 3RF Dose Instruction: TAKE 1 TABLET EVERY DAY Rx Instructions: TAKE 1 TABLET EVERY DAY metoprolol tartrate 25 mg tablet See Rx Instructions .ROUTE .COMPLEX Qty: 180 3RF Dose Instruction: TAKE 1 TABLET TWICE DAILY Rx Instructions: TAKE 1 TABLET TWICE DAILY nitroglycerin 0.4 mg tablet, sublingual 0.4 mg SUBLINGUAL Q5M PRN (Reason: Chest Pain) Rx Instructions: until response; do not exceed 3 doses per episode Discharge Orders: Discharge ED (Routine); Ordered 10/30/23 Ordered By: Mode Colon Referrals: Muna Lawrence MD [Primary Care Provider] - Discharge Diet: Advance as tolerated Discharge Activity: Resume usual activity Patient Instructions: Opioid Safety, Pain Management Activity Restrictions/Additional Instructions: Activity Restrictions/Additional Instructions: Thank you for choosing [facility] for your healthcare needs today. Please realize that you were seen in the Emergency Department and that we are providing you with an emergency medical screening exam and this may not be a complete and all inclusive of all the testing and or medical work-up that you may need to determine your ailment or severity of your illness. It is very important that you follow-up as instructed with your Primary care provider or Specialist for additional evaluation and to discuss your medical treatment plan. You may return to the Emergency Department should you have concerns or if your condition changes or worsens in any way. Coding Level of Care Code ED Band Lining Bander for Anabela Pires
[2023-10-30 00:03] LABS: Influenza A by IFA negative (Negative); Influenza B by IFA negative (Negative); SARS Covid-2 Antigen negative (Negative)
[2023-10-30] MEDS: cefTRIAXone 2,000 MG in sodium chloride 0.9% (plus) 50 ML 100 MG IV (00:05)
[2023-10-30 00:12] LABS: Bilirubin Urine 1+ (Negative); Blood Urine 2+ (Negative); Glucose Urine UA Norm (Normal); Ketones Urine 1+ (Negative); Leukocyte Esterase Urine 2+ (Negative); Nitrate Urine Negative (Negative); Protein Urine 1+ (Negative); Urine Appearance Cloudy (CLEAR); Urine Color Yellow (Yellow); Urobilinogen Urine 4 mg/dL (Negative); pH Urine 5 (5-7)
[2023-10-30 00:13] LABS: Add Urine Culture? No; Bacteria Urine 2+ /hpf; Calcium Oxalate Crystals Urine 0-4 /hpf; Mucus Urine 2+ /hpf; WBC Urine 25-40 /hpf (0-5)
[2023-10-30 00:27] LABS: Basophils # 0.1 10^3/uL (0.0-0.1); Basophils % 1.4 %; Eosinophils # 0.3 10^3/uL (0.0-0.8); Hematocrit 41.7 % (36-47); Lymphocytes # 1.3 10^3/uL (0.8-4.8); Lymphocytes % 36.7 %; Mean Corpuscular HGB Conc 32.6 g/dL (30-55); Mean Corpuscular Hemoglobin 30.2 pg (27-33); Mean Corpuscular Volume 92.7 fl (85-98); Mean Platelet Volume 9.8 fL (7.4-10.4); Monocytes # 0.4 10^3/uL (0.2-0.9); Neutrophils # 1.52 10^3/uL (1.8-7.7); Neutrophils % 42.6 %; Nucleated Red Blood Cells % 0 %; Platelet Count 270 10^3/cmm (157-399); Red Cell Distribution Width 14.1 % (12.1-15.1); White Blood Count 3.57 10^3/uL (3.29-11.43)
[2023-10-30 00:36] VITALS: BP 142/89; PULSE 77; O2SAT 99
[2023-10-30 00:47] LABS: Alanine Aminotransferase 36 U/L (0-33); Albumin Level 3.6 g/dL (3.5-5.2); Alkaline Phosphatase 98 U/L (35-105); Aspartate Amino Transferase 40 U/L (0-32); Blood Urea Nitrogen 13 mg/dL (8-23); Calcium 9.1 mg/dL (8.5-10.5); Carbon Dioxide 27 mmol/L (22-29); Chloride 100 mmol/L (98-107); Globulin 2.9 g/dL (1.3-4.6); Glomerular Filtration Rate 62.3 mL/min (90-130); Glucose 112 mg/dL (65-115); Osmolality Calculated 283 mOsm/kg (285-295); Sodium 136 mmol/L (136-145); Total Bilirubin 0.5 mg/dL (0.15-1.2); Total Protein 6.5 g/dL (6.6-8.7)
[2023-10-30 01:36] VITALS: PULSE 72; O2SAT 91
== END 2023-10-30 01:39 | disposition home or self-care (01) ==
PROVIDERS: Emergency Provider Internal Medicine; PCP Family Medicine
DX: J18.9 Pneumonia, unspecified organism (principal); N39.0 Urinary tract infection, site not specified; Z11.52 Encounter for screening for COVID-19; Z77.22 Contact with and (suspected) exposure to environmental tobacco smoke (acute) (chronic); I10 Essential (primary) hypertension; I25.5 Ischemic cardiomyopathy
CPT/HCPCS: 71045; 80053; 81001; 85025; 87426; 87804; 96365; 99284; J0696

== ENCOUNTER 2023-11-15 15:14 | Outpatient (CLI) | payer MEDICARE, SELFPAY ==
--- NOTE | 2023-11-15 15:22 | XR_ITS ---
WS: [id number] Chest 2 views, 11/15/2023 Clinical Data: PNEUMONIA Comparison: Portable chest, 10/29/2023 Findings: No nodules, masses or effusions are seen. The heart is normal. The pulmonary vascularity is not increased. No pneumonia or pneumothorax is seen. There is a calcified granuloma overlying the ri ght upper chest. The aortic arch and descending thoracic aorta show mild tortuosity. The diaphragms a re flattened. There is an anterior cervical disc fusion. There are cholecystectomy clips in the right upper quadrant. Impression: Atherosclerosis and hyperinflation.
== END 2023-11-15 15:15 | disposition home or self-care (01) ==
LOC: RAD 15:16
PROVIDERS: PCP Family Medicine; Visit Provider Family Medicine
DX: J18.9 Pneumonia, unspecified organism (principal)
CPT/HCPCS: 71046

== ENCOUNTER → 2023-12-04 14:22 | Outpatient (BNVA) | payer MEDICARE, SELFPAY | PROVIDERS: PCP Family Medicine; Visit Provider Internal Medicine Cardiovascular Disease | DX: R06.02 Shortness of breath (principal); I42.8 Other cardiomyopathies; I11.0 Hypertensive heart disease with heart failure; I50.30 Unspecified diastolic (congestive) heart failure | CPT/HCPCS: 99214 ==

== ENCOUNTER → 2023-12-11 13:19 | Outpatient (BNVA) | payer MEDICARE, SELFPAY | PROVIDERS: PCP Family Medicine; Visit Provider Internal Medicine Pulmonary Disease | DX: J44.9 Chronic obstructive pulmonary disease, unspecified (principal); I11.0 Hypertensive heart disease with heart failure; I50.22 Chronic systolic (congestive) heart failure; I25.5 Ischemic cardiomyopathy; R91.8 Other nonspecific abnormal finding of lung field | CPT/HCPCS: 99214 ==

== ENCOUNTER 2023-12-18 16:07 | Outpatient (CLI) | payer MEDICARE, SELFPAY ==
[2023-12-18 18:36] LABS: Thyroid Stimulating Hormone 1.17 uIU/mL (0.27-4.20)
[2023-12-18 20:47] LABS: Free T4 Free Thyroxine 1.25 ng/dL (0.82-1.77)
[2023-12-20 09:53] LABS: T3 Total 97 ng/dL (76-181)
== END 2023-12-18 16:08 | disposition home or self-care (01) ==
LOC: LAB 16:09
PROVIDERS: PCP Family Medicine; Visit Provider Internal Medicine
DX: E03.8 Other specified hypothyroidism (principal); E04.2 Nontoxic multinodular goiter
CPT/HCPCS: 36415; 84439; 84443; 84480

== ENCOUNTER 2024-02-28 12:30 | Outpatient (CLI) | payer MEDICARE, SELFPAY ==
--- NOTE | 2024-02-28 13:00 | US_ITS ---
WS: [id number] THYROID ULTRASOUND HISTORY: thyroid nodules COMPARISON: 06/18/2023 Right lobe: 2.0 cm x 1.7 cm x 5.5 cm (w x ap x l). Volume: 8.6 cm3. Normal sized thyroid. Complex cystic nodule with septation in the mid gland. Nodule measures 0.8 x 0. 7 x 1.1 cm. Minimal increase in size since 12/22/2022. There is mild increased peripheral vascularity within this nodule. Left lobe: Status post LEFT thyroidectomy. No recurrent mass in the thyroid bed. Isthmus: 0.3 cm. IMPRESSION: 1. Status post LEFT thyroidectomy. No recurrent mass in the thyroid bed. 2. Complex cystic nodule in the mid RIGHT thyroid with minimal increase in size since 12/22/2022.
== END 2024-02-28 12:31 | disposition home or self-care (01) ==
LOC: RAD 12:30
PROVIDERS: PCP Family Medicine; Visit Provider Internal Medicine
DX: E04.2 Nontoxic multinodular goiter (principal); E03.9 Hypothyroidism, unspecified
CPT/HCPCS: 76536

== ENCOUNTER → 2024-03-27 08:45 | Outpatient (BNVA) | payer MEDICARE, SELFPAY | PROVIDERS: PCP Family Medicine; Visit Provider Internal Medicine | DX: E03.8 Other specified hypothyroidism (principal); E04.2 Nontoxic multinodular goiter; E07.9 Disorder of thyroid, unspecified; Z79.890 Hormone replacement therapy | CPT/HCPCS: 99214 ==

== ENCOUNTER 2024-06-11 14:00 | Outpatient (CLI) | payer MEDICARE, SELFPAY ==
--- NOTE | 2024-06-11 13:55 | MM_ITS ---
WS: [id number] Bilateral screening 3D tomosynthesis digital mammogram, 06/11/2024 Clinical Data: SCREENING Comparison: 09/12/2022, 02/04/2018, 12/18/2014, 06/14/2011, 09/09/2008. Findings: The breast parenchymal pattern shows fibroglandular tissue. No spiculated masses or clustered calcifi cations are seen. There are no secondary signs of carcinoma. MM/[place] [id number] Impression: 1. Negative bilateral mammogram unchanged. 2. Recommend annual screening mammograms. BIRADS: 1-Negative FOLLOW UP: 1 Year Follow-up The CAD installment account checker was used.
== END 2024-06-11 14:01 | disposition home or self-care (01) ==
PROVIDERS: PCP Family Medicine; Visit Provider Family Medicine
DX: Z12.31 Encounter for screening mammogram for malignant neoplasm of breast (principal)
CPT/HCPCS: 77063; 77067

== ENCOUNTER 2025-03-12 13:54 | Outpatient (CLI) | payer MEDICARE, SELFPAY ==
--- NOTE | 2025-03-12 14:30 | US_ITS ---
WS: [id number] Thyroid ultrasound, 03/12/2025 Clinical Data: E07.9 - Disorder of thyroid, unspecified Comparison: Thyroid ultrasound, 02/28/2024 Findings: The right lobe of thyroid measures 4.7 cm x 2.0 cm x 2.0 cm. Right lobe shows a complex cyst measuring 0.8 x 1.1 x 1.1 cm. The left lobe has been removed. The isthmus measured 0.4 mm. The echotexture of the thyroid is mixed. No masses are seen. US/US thyroid [id number] Impression: 1. Mixed echotexture of right lobe of thyroid with complex cyst. 2. Left lobe of thyroid removed.
[2025-03-12 14:45] LABS: Free T4 Free Thyroxine 1.24 ng/dL (0.82-1.77); Thyroid Stimulating Hormone 1.25 uIU/mL (0.27-4.20)
== END 2025-03-12 13:55 | disposition home or self-care (01) ==
LOC: RAD 13:56
PROVIDERS: PCP Family Medicine; Visit Provider Internal Medicine
DX: E04.1 Nontoxic single thyroid nodule (principal); E03.8 Other specified hypothyroidism; I50.22 Chronic systolic (congestive) heart failure; R93.89 Abnormal findings on diagnostic imaging of other specified body structures
CPT/HCPCS: 36415; 76536; 84439; 84443

== ENCOUNTER → 2025-03-26 08:57 | Outpatient (BNVA) | payer MEDICARE, SELFPAY | PROVIDERS: PCP Family Medicine; Visit Provider Internal Medicine | DX: E04.2 Nontoxic multinodular goiter (principal); E03.8 Other specified hypothyroidism; E07.9 Disorder of thyroid, unspecified | CPT/HCPCS: 99214 ==

== ENCOUNTER 2025-04-07 15:48 | Outpatient (CLI) | payer MEDICARE, SELFPAY ==
--- NOTE | 2025-04-07 16:00 | XRR_ITS ---
PROCEDURE INFORMATION: Exam: XR Chest Exam date and time: 04/07/2025 4:04 PM Age: 70 years old Clinical indication: Cough, spitting up mucus x 2 months. TECHNIQUE: Imaging protocol: Radiologic exam of the chest. Views: 2 views. COMPARISON: CR XR chest 2V* [id number] 11/15/2023 3:27 PM FINDINGS: Lungs: Calcified granulomata in the right upper lobe. Pleural spaces: Unremarkable. No pleural effusion. No pneumothorax. Heart/Mediastinum: Unremarkable. No cardiomegaly. Bones/joints: Anterior cervical fusion. XR/XR chest 2V* [id number] IMPRESSION: No acute findings.
== END 2025-04-07 15:49 | disposition home or self-care (01) ==
PROVIDERS: PCP Nurse Practitioner Family; Visit Provider Nurse Practitioner Family
DX: R05.9 Cough, unspecified (principal); J84.10 Pulmonary fibrosis, unspecified; Z98.1 Arthrodesis status
CPT/HCPCS: 71046

== ENCOUNTER 2025-09-01 11:58 | Outpatient (CLI) | payer MEDICARE, SELFPAY ==
--- NOTE | 2025-09-01 12:17 | MR_ITS ---
WS: [id number] MRI BRAIN WITH AND WITHOUT CONTRAST HISTORY: FACIAL PAIN COMPARISON: None available. TECHNIQUE: Multiplanar imaging performed through the brain with MultiHance 15 ml's IV. No acute diffusion abnormalities. 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 Mild cerebral and cerebellar atrophy. There is advanced T2 and FLAIR signal hyperintensities throughout the white matter. Some of these white matter lesions are closely associated with the corpus callosum. There are numerous subcortical white matter lesions in the frontal, temporal and parietal lobes. Small tiny lacunar infarcts in the cerebellum. Minimal hippocampal atrophy. No hemosiderin. Ventricles and extra-axial spaces are normal. Clivus and pituitary gland are normal. Postcontrast images are negative for masses or vascular malformations. Dural venous sinuses are normal. Paranasal sinuses: Well aerated with no significant disease. Mastoid air cells: Normal. Calvarium and scalp: Normal. MR/MR head wo/w con [id number] IMPRESSION: 1. No acute infarcts. 2. Numerous T2 and FLAIR signal hyperintensities throughout the supratentorial white matter with no enhancement. Some of these white matter lesions do contac t and involve the corpus callosum. Differential includes small vessel changes, hypertension, diabetes and history of smoking. Less likely demyelinating diseas e due to the patient's age. 3. Small lacunar infarcts in the cerebellum. 4. No enhancing masses.
[2025-09-01] MEDS: gadobenate dimeglumine 20 mL vial IV (13:20)
== END 2025-09-01 11:59 | disposition home or self-care (01) ==
LOC: RAD 11:59
PROVIDERS: PCP Nurse Practitioner Family; Visit Provider Nurse Practitioner Family
DX: R51.9 Headache, unspecified (principal); I63.89 Other cerebral infarction; R90.82 White matter disease, unspecified
CPT/HCPCS: 70553